=== PATIENT | male | born 1935 | race Two or more races ===

== ENCOUNTER 2023-07-10 14:52 | Inpatient (IN) | payer OTHER ==
[~2023-07-10] VITALS: Ht 162.6 cm; Wt 77.2 kg
[~2023-07-10 14:52] MED LIST: AMLO1TAB23 PO; ASPI-543 PO; ATOR80TA PO; HYDR25TA4 PO; METO-159 PO; OMEP20CA74 OR; TAMS0.4C36 PO
[2023-07-10 15:25] LABS: Basophils # (auto) 0.1 10 ^3/uL (0-0.2); Hemoglobin 14.3 g/dL (13.5-17.5); Lymphocytes # (auto) 1.8 10 ^3/uL (0.4-5.4); Monocytes # (auto) 0.4 10 ^3/uL (0-1.3); Nucleated Red Blood Cells % 0.2 %
[2023-07-10 15:27] LABS: Basophils % (auto) 1.3 % (0.0-2.0); Eosinophils # (auto) 0.5 10 ^3/uL (0-0.8); Eosinophils % (auto) 6.8 % (0.0-7.0); Hematocrit 40.6 % (41.0-53.0); Lymphocytes % (auto) 25.9 % (10.0-50.0); Mean Corpuscular Hgb Conc. 35.3 g/dL (32.0-36.0); Mean Corpuscular Volume 99.1 fL (80.0-100.0); Monocytes % (auto) 5.8 % (0.0-12.0); Neutrophils # (auto) 4.2 10 ^3/uL (1.6-8.6); Neutrophils % (auto) 60.2 % (37.0-80.0); Red Blood Cells 4.09 10^6/uL (4.5-5.90); Red Cell Distribution Width 14.6 % (11.8-14.3); White Blood Cell 6.9 10^3/uL (4.4-10.8)
[2023-07-10 15:40] LABS: INR 1.09 (0.9-1.15); Partial Thromboplastin Time 27.1 SEC (24.5-34.5); Prothrombin Time 11.4 sec (9.3-11.8)
[2023-07-10 15:46] LABS: Alanine Aminotransferase 17 U/L (7-40); Albumin 3.9 g/dL (3.2-4.8); Alkaline Phosphatase 97 U/L (46-116); Anion Gap 5 (5-15); Aspartate Aminotransferase 15 U/L (13-40); BUN/Creatinine Ratio 13.7 (10.0-20.0); Blood Urea Nitrogen 17 mg/dL (9-23); Calcium 8.8 mg/dL (8.7-10.4); Carbon Dioxide 27 mmol/L (20-30); Chloride 108 mmol/L (98-107); Glucose 103 mg/dL (74-106); Potassium 3.6 mmol/L (3.5-5.1); Sodium 140 mmol/L (136-145)
[2023-07-10 15:47] LABS: Bilirubin, Total 0.7 mg/dL (0.2-1.0); Total Protein 6.5 g/dL (5.7-8.2)
[2023-07-10] MEDS ORDERED: ASPirin 325 MG TAB PO ONE (16:15)
[2023-07-10] MEDS ORDERED: NITROGLYCERIN 0.4 MG SL TAB SL ONE (16:15)
[2023-07-10] MEDS ORDERED: ONDANSETRON HCL 4 MG/2 ML VIAL IV PRN (18:15)
[2023-07-10] MEDS ORDERED: NITROGLYCERIN 0.4 MG SL TAB SL PRN (18:15)
[2023-07-10] MEDS ORDERED: MORPHINE SULFATE 4 MG/ML SYR/VIAL IV PRN (18:15)
[2023-07-10] MEDS ORDERED: ACETAMINOPHEN 325 MG TAB PO PRN (18:15)
[2023-07-10 19:18] LABS: Magnesium 2.1 mg/dL (1.6-2.6)
[2023-07-10 19:47] LABS: Triglycerides 92 mg/dL (< 150)
[2023-07-10 19:48] LABS: LDL Cholesterol 66 mg/dL (< 100)
[2023-07-10 19:49] LABS: Cholesterol 129 mg/dL (< 200); HDL Cholesterol 51 mg/dL (40-59)
[2023-07-10 23:43] VITALS: O2SAT 98
[2023-07-10] MEDS: ENOXAPARIN SOD 80 MG/0.8ML SYRINGE SC SCH (23:45)
[2023-07-10] MEDS: METOPROLOL TARTRATE 25 MG TAB PO SCH (23:45)
[2023-07-10] MEDS: ATORVASTATIN 20 MG TAB PO SCH (23:48)
[2023-07-11] MEDS: hydrALAZINE HCL 20 MG/ML VL IV PRN ×3 (03:29→23:10)
[2023-07-11 08:00] VITALS: PULSE 73; RESP 19; O2SAT 95
[2023-07-11] MEDS: ASPirin 81 mg TAB PO SCH (10:04)
[2023-07-11] MEDS: DOCUSATE SOD 100 MG CAP PO SCH (10:04)
[2023-07-11] MEDS: ENOXAPARIN SOD 80 MG/0.8ML SYRINGE SC SCH (10:05)
[2023-07-11] MEDS: METOPROLOL TARTRATE 25 MG TAB PO SCH ×2 (10:05→22:52)
[2023-07-11] MEDS ORDERED: ADENOSINE 65 MG in GIVE UN-DILUTED 0 ML IV ONE (11:30)
[2023-07-11 13:09] LABS: Basophils # (auto) 0.1 10 ^3/uL (0-0.2); Hemoglobin 14.8 g/dL (13.5-17.5); Monocytes # (auto) 0.4 10 ^3/uL (0-1.3); Nucleated Red Blood Cells % 0.2 %
[2023-07-11 13:10] LABS: Basophils % (auto) 1.3 % (0.0-2.0); Eosinophils # (auto) 0.2 10 ^3/uL (0-0.8); Eosinophils % (auto) 2.9 % (0.0-7.0); Hematocrit 41.7 % (41.0-53.0); Lymphocytes # (auto) 1.5 10 ^3/uL (0.4-5.4); Mean Corpuscular Hemoglobin 35.1 pg (28.0-32.0); Mean Corpuscular Hgb Conc. 35.4 g/dL (32.0-36.0); Mean Corpuscular Volume 99.1 fL (80.0-100.0); Monocytes % (auto) 5.1 % (0.0-12.0); Neutrophils % (auto) 72.7 % (37.0-80.0); Red Blood Cells 4.21 10^6/uL (4.5-5.90); Red Cell Distribution Width 14.9 % (11.8-14.3); White Blood Cell 8.2 10^3/uL (4.4-10.8)
[2023-07-11 13:19] LABS: Alanine Aminotransferase 18 U/L (7-40); Alkaline Phosphatase 82 U/L (46-116); Anion Gap 4 (5-15); Aspartate Aminotransferase 17 U/L (13-40); Bilirubin, Total 1.5 mg/dL (0.2-1.0); Blood Urea Nitrogen 13 mg/dL (9-23); Calcium 8.7 mg/dL (8.7-10.4); Carbon Dioxide 28 mmol/L (20-30); Chloride 105 mmol/L (98-107); Glucose 95 mg/dL (74-106); Potassium 3.6 mmol/L (3.5-5.1); Sodium 137 mmol/L (136-145)
[2023-07-11 19:30] VITALS: PULSE 76; RESP 16; O2SAT 98
[2023-07-11] MEDS: ATORVASTATIN 20 MG TAB PO SCH (22:48)
[2023-07-11] MEDS ORDERED: hydrALAZINE HCL 20 MG/ML VL IV PRN (23:15)
[2023-07-11] MEDS: amLODIPine BESYLATE 5 MG TAB PO SCH (23:27)
[2023-07-12 02:15] VITALS: PULSE 82; RESP 20; O2SAT 98
[2023-07-12] MEDS: DOCUSATE SOD 100 MG CAP PO SCH (08:29)
[2023-07-12] MEDS: METOPROLOL TARTRATE 25 MG TAB PO SCH ×2 (08:29→22:09)
[2023-07-12] MEDS: ASPirin 81 mg TAB PO SCH (08:29)
[2023-07-12] MEDS: amLODIPine BESYLATE 5 MG TAB PO SCH (08:30)
[2023-07-12 09:00] VITALS: TEMP 97.9
[2023-07-12] MEDS ORDERED: ENOXAPARIN SOD 40 MG/0.4 ML SYRINGE SC SCH (10:00)
[2023-07-12] MEDS ORDERED: amLODIPine BESYLATE 5 MG TAB PO ONE (14:00)
[2023-07-12] MEDS ORDERED: hydrALAZINE HCL 20 MG/ML VL IV ONE (16:30)
[2023-07-12] MEDS ORDERED: LABETALOL HCL 5 MG/ML 4ML SYRINGE IV ONE (18:45)
[2023-07-12 19:02] LABS: Hemoglobin 14.2 g/dL (13.5-17.5)
[2023-07-12 19:18] LABS: INR 1.14 (0.9-1.15); Partial Thromboplastin Time 25.4 SEC (24.5-34.5); Prothrombin Time 11.9 sec (9.3-11.8)
[2023-07-12 19:30] VITALS: PULSE 77; RESP 20; O2SAT 94
[2023-07-12] MEDS: ATORVASTATIN 20 MG TAB PO SCH (22:08)
[2023-07-12 23:00] VITALS: BP 128/66; PULSE 69; RESP 28; O2SAT 81
[2023-07-13] MEDS ORDERED: amLODIPine BESYLATE 5 MG TAB PO SCH (10:00)
== END 2023-07-12 23:34 | disposition left against medical advice (07) | DRG 82 ==
LOC: ER 14:52 → TELE 18:33
PROVIDERS: ADMIT Nurse Practitioner Family; ATTEND Internal Medicine
DX: S06.5X9A Traumatic subdural hemorrhage with loss of consciousness of unspecified duration, initial encounter (principal); G93.41 Metabolic encephalopathy; I24.9 Acute ischemic heart disease, unspecified; I10 Essential (primary) hypertension; E66.9 Obesity, unspecified; E78.5 Hyperlipidemia, unspecified; N40.0 Benign prostatic hyperplasia without lower urinary tract symptoms; F03.90 Unspecified dementia, unspecified severity, without behavioral disturbance, psychotic disturbance, mood disturbance, and anxiety; W18.30XA Fall on same level, unspecified, initial encounter; Z53.29 Procedure and treatment not carried out because of patient's decision for other reasons; Z93.3 Colostomy status; Z85.038 Personal history of other malignant neoplasm of large intestine; Z87.891 Personal history of nicotine dependence; Z68.29 Body mass index [BMI] 29.0-29.9, adult
CPT/HCPCS: 36415; 70450; 71045; 78452; 80053; 80061; 83036; 83690; 83735; 83880; 84443; 84484; 85014; 85018; 85025; 85379; 85610; 85730; 86850; 86900; 86901; 93005; 93017; 93306; G0378; J0153; J3490